=== PATIENT | female | born 2000 | race African-American/Black ===

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

== ENCOUNTER 2022-04-14 17:39 | Emergency (ER) | payer OTHER ==
[~2022-04-14 17:39] MED LIST: COLACE 100MG C100 MG PO; HYDROCODON-ACE1 EAC4 PO; IBUPROFEN800 MG PO; IRO PO; PRENATAL VITAM1 EAC5 PO
[2022-04-14] MEDS ORDERED: AMOXICILLIN500 M1 PO (21:40)
[2022-04-14] MEDS ORDERED: NAPROSYN500 MG PO (21:40)
== END 2022-04-14 22:55 | disposition home or self-care (01) ==
LOC: ER1 17:39
DX: K02.9 Dental caries, unspecified (principal); K05.00 Acute gingivitis, plaque induced; F17.200 Nicotine dependence, unspecified, uncomplicated
CPT/HCPCS: 99282